=== PATIENT | female | born 1985 | race Asian ===

== ENCOUNTER → 2019-09-12 | Outpatient (CLI) | payer BC, MEDICAID ==
[2014-07-10 10:47] VITALS: BP 94/61
[~2019-09-12] MED LIST: OXYC1TAB15 PO
--- NOTE | 2019-09-12 19:59 | RAD ---
PREG 1ST TRIMESTER Clinical Indication: . LMP 05/09/2019 Comparison: None. Technique: Multiple grayscale images, color Doppler, and M-mode images of the uterus are obtained. Findings: There is a single intrauterine gestation. The placenta is posterior in location without evidence of placenta previa. Small 1.5 cm hypoechoic area within the placental, possibly vascular kasper. The amount of amniotic fluid appears appropriate. Cervix is not clearly visualized Biometrical data: BPD = 4.4 cm for 19 weeks 2 days. HC = 17.6 cm for 20 weeks 1 days. AC = 15.4 cm for 20 weeks 4 days. FL = 3.3 cm for 20 weeks 1 days. CI ratio = 70.2. HC/AC ratio = 1.14. FL/HC ratio = 18.5. FL/AC ratio = 21.1. Overall, the estimated sonographic gestational age is 20 weeks 0 days for an estimated date of delivery of 01/30/2020. The estimated date of delivery provided by the last menstrual period is 02/13/2020. Estimated weight is 06/24/1947 grams. A 4 chamber heart is identified with positive cardiac activity. Right ventricular outflow tract and left ventricular outflow tract are not well visualized. The estimated heart rate is 145 beats per minute. Bilateral upper and lower extremities are identified. There is a three-vessel cord with cord insertion visualized. stomach and urinary bladder are identified. Both kidneys are seen. The spine and brain are unremarkable. No gross anatomic abnormalities are identified. Impression: Single live intrauterine gestation with estimated sonographic gestational age of 20 weeks 0 days. Electronically signed by: Rehan Guerrero MD (09/12/2019 7:56 PM) [id number]
== END | disposition home or self-care (01) ==
LOC: US 15:39
PROVIDERS: ATTEND Obstetrics & Gynecology
DX: Z34.82 Encounter for supervision of other normal pregnancy, second trimester (principal); Z3A.20 20 weeks gestation of pregnancy
CPT/HCPCS: 76801

== ENCOUNTER → 2019-10-22 | Outpatient (CLI) | payer BC ==
[2014-07-10 10:47] VITALS: BP 94/61
--- NOTE | 2019-10-22 17:03 | RAD ---
Examination: OB LIMITED History: OB ultrasound follow-up Comparison/Correlation: 09/12/2019 ultrasound Findings: Limited OB ultrasound exam was performed. Single breech intrauterine gestation with heart rate of 145 bpm is present. Grade 1 placenta that the posterior wall is present. movement is evident. Amniotic fluid index of 12.7 noted. Biparietal diameter of 6.95 cm corresponding to 20 weeks 0 days. Head circumference of 25.3 cm corresponding to 27 weeks 4 days. Abdominal circumference of 22.1 cm corresponding to 26 weeks 4 days. Femur length of 4.98 cm corresponding to 26 weeks 6 days. Head circumference to abdominal circumference ratio is 1.15. Estimated weight is 988 g. Gestational age is 27 weeks 2 days. Ultrasound EDC is 01/19/2020. Maternal cervical length of 4.6 cm is evident. Bilateral maternal ovaries are unremarkable. Impression: Single living breech intrauterine gestation corresponding to average ultrasound age 27 weeks 2 days. Adequate interval growth since the prior exam is noted. Average ultrasound age is nearly 4 weeks greater than clinical age by last menstrual period. Electronically signed by: Maxi Manzo MD (10/22/2019 5:00 PM) [id number]
== END | disposition home or self-care (01) ==
LOC: US 14:58
PROVIDERS: ATTEND Obstetrics & Gynecology
DX: Z34.92 Encounter for supervision of normal pregnancy, unspecified, second trimester (principal); Z3A.27 27 weeks gestation of pregnancy
CPT/HCPCS: 76815

== ENCOUNTER 2020-01-13 12:12 | Emergency (ER) | payer BC, MEDICAID ==
[~2020-01-13] VITALS: Ht 154.9 cm; Wt 70.0 kg
[2020-01-13 12:35] VITALS: BP 137/82
--- NOTE | 2020-01-13 13:41 | PHYS DOC ---
Past Medical History Past Medical History: No Pertinent History Past Surgical History: Smoking Status: Never Smoker Alcohol Use: None General Adult EDM: Chief Complaint: ITCHING HPI: HPI: Patient is 34-year-old female presents the emergency room with hives across her abdomen and legs. She has had this for the last week. She saw her MANAGER INVENTORY last week who put her on Benadryl and cortisone cream. She states these are not working. She states she continues to be itchy. She is due to deliver her baby next week. Denies any other concerns at this time. Review of Systems: Review of Systems: Negative other than noted Heart Score: Risk Factors: Risk Factors: DM, Current or recent (<one month) smoker, HTN, HLP, family history of CAD, obesity. Risk Scores: Score 0 - 3: 2.5% MACE over next 6 weeks - Discharge Home Score 4 - 6: 20.3% MACE over next 6 weeks - Admit for Clinical Observation Score 7 - 10: 72.7% MACE over next 6 weeks - Early Invasive Strategies Allergies: Allergies: Allergies Coded Allergies Type Severity Reaction Last Updated Verified No Known Drug Allergies 07/09/14 No Physical Exam: PE: General: Awake, alert, NAD. Well Nourished, well hydrated. Cooperative HEENT: Atraumatic, EOMI, PERRL, airway patent, moist oral mucosa Neck: Supple, trachea midline GI: Gravid abdomen MSK: No obvious deformities Skin: Warm, dry, hives diffusely along abdomen and bilateral upper legs Neuro: A&O x3, speech NL, sensory and motor grossly intact, no focal deficits Psych: Normal affect, normal mood, not suicidal or homicidal Current Patient Data: Vital Signs: Vital Signs Date Time Temp Pulse Resp B/P (MAP) Pulse Ox O2 Delivery O2 Flow Rate FiO2 01/13/20 12:35 98.4 109 20 137/82 (100) 100 Room Air 98.4 EKG: EKG: [] Radiology/Procedures: Radiology/Procedures: [] Course & Med Decision Making: Course & Med Decision Making Pertinent Labs and Imaging studies reviewed. (See chart for details) Patient is 34-year-old female presents to the emergency room with hives to her legs and abdomen. She does not have any other signs of allergic reaction. I did discuss the risks and benefits of prednisone with her. She is outside of the first trimester however she is due for delivery next week. At this time she would like to wait and talk to her MANAGER INVENTORY about this. I have discussed with her that if she develops any swelling or shortness of breath she should return to the emergency room. Patient's test results and vitals while in the ED were fully reviewed and discussed with the patient. Patient is stable and at this time does not need admission to the hospital. We have discussed strict return precautions and the importance of following up with their Primary Care Physician. Patient stated understanding and was given an opportunity to ask any questions. Patient is in agreement with plan. Josiah Disclaimer: Dr[place] Disclaimer: This electronic medical record was generated, in whole or in part, using a voice recognition dictation system. Departure Departure Impression: Primary Impression: Hives Disposition: 01 HOME, SELF-CARE Condition: STABLE Referrals: UNKNOWN PCP NAME (PCP) Patient Instructions: Hives Additional Instructions: Discuss with your OBGYN whether it would be safe for you to do a course of steroids to help with your Hives. Justicifation of Admission Dx: Justifications for Admission: Justification of Admission Dx: N/A DARIAN RUGGIERO MD Jan 13, 2020 13:40
== END 2020-01-13 14:08 | disposition home or self-care (01) ==
LOC: ER 12:12
DX: L50.9 Urticaria, unspecified (principal)
CPT/HCPCS: 99281